=== PATIENT | female | born 1965 | race Caucasian/White ===

== ENCOUNTER 2020-02-22 10:18 | Outpatient (CLI) | payer OTHER ==
--- NOTE | 2020-02-22 10:49 | BD ---
EXAM: Bone densitometry using DEXA HISTORY: 54 yo female. Screening for postmenopausal osteoporosis FINDINGS: L1--bone mineral density 0.975 g/sq cm; T score -0.1 ; Z score 0.7 L2--bone mineral density 0.981 g/sq cm; T score -0.4 ; Z score 0.6 L3--bone mineral density 1.102 g/sq cm; T score 0.2 ; Z score 1.2 L4--bone mineral density 1.116 g/sq cm; T score 0.5 ; Z score 1.6 Total L1-L4--bone mineral density 1.052 g/sq cm; T score 0.0 ; Z score 1.1 Left femoral neck--bone mineral density0.866; T score 0.1 ; Z score 1.1 Total proximal left femur--bone mineral density 1.091; T score 1.2 ; Z score 1.9 IMPRESSION: Normal BMD
== END 2020-02-22 10:19 | disposition home or self-care (01) ==
LOC: BICMAMMO 10:18
PROVIDERS: ATTEND Family Medicine
DX: Z13.820 Encounter for screening for osteoporosis (principal); N95.9 Unspecified menopausal and perimenopausal disorder
CPT/HCPCS: 77080

== ENCOUNTER 2020-12-11 05:39 | Emergency (ER) | payer OTHER ==
[2020-12-11 06:34] LABS: #Lymphocytes 0.2 thou/uL (1.20-3.40); #Monocytes 0.3 thou/uL (0.11-0.59); #Neutrophils 5.5 thou/uL (1.40-6.50); %Basophils 0.1 % (0.0-1.0); %Eosinophils 0.3 % (0.0-10.0); %Monocytes 4.9 % (0.0-10.0); %Neutrophils 90.7 % (42.0-75.0); Hemoglobin 15.3 g/dL (12.0-16.0); Mean Corpuscular Hemoglobin 31.5 pg (27.0-31.0); Mean Corpuscular Volume 95.5 fL (78.0-98.0); Mean Platelet Volume 7.9 fL (7.4-10.4); Platelet Count 154 thou/uL (130-400); RBC Distribution Width 12.1 % (11.5-14.5); Red Blood Cell (RBC) Count 4.86 mill/uL (4.20-5.40); White Blood Cell (WBC) Count 6.1 thou/uL (4.8-10.8)
[2020-12-11 06:55] LABS: ALT (SGPT) 36 U/L (8-55); AST (SGOT) 38 U/L (5-34); Albumin 3.9 g/dL (3.5-5.0); Alkaline Phosphatase 66 U/L (40-110); Anion Gap 13 mmol/L (10-20); BUN (Urea Nitrogen) 14 mg/dL (9.8-20.1); Bilirubin, Total 0.3 mg/dL (0.2-1.2); Calc. Creatinine Clearance 0 mL/min (70-130); Calcium 8.5 mg/dL (7.8-10.44); Carbon Dioxide 17 mmol/L (22-29); Chloride 112 mmol/L (98-107); Globulin 2.6 g/dL (2.4-3.5); Glucose 120 mg/dL (70-105); Lipase 16 U/L (8-78); Potassium 3.8 mmol/L (3.5-5.1); Protein, Total 6.5 g/dL (6.0-8.3); Sodium 138 mmol/L (136-145)
[2020-12-11] MEDS ORDERED: Ondansetron PF 4 MG/2 ML Vial ONE (06:56)
[2020-12-11] MEDS ORDERED: Ketorolac Tromethamine 30 MG/ML VIAL ONE (06:56)
[2020-12-11] MEDS ORDERED: diphenhydrAMINE 50 MG/ML VIAL ONE (06:56)
[2020-12-11] MEDS ORDERED: Meclizine HCl 25 MG TAB ONE (06:56)
[2020-12-11] MEDS ORDERED: Metoclopramide HCl 10 MG/2 ML VIAL ONE (06:56)
[2020-12-11 07:42] LABS: Bacteria/HPF None Seen HPF (None Seen); Bilirubin Negative (Negative); Blood, Urine 2+ (Negative); Calcium Oxalate Crystals 3+ HPF (None Seen); Clarity Clear (Clear); Glucose, Urine (Dipstick) Normal (Negative); Ketone, Urine 20 mg/dL (Negative); Leukocyte 75 Leu/uL (Negative); Nitrite Negative (Negative); Protein, Urine (Dipstick) 50 mg/dL (Neg-Trace); RBC/HPF 21-50 HPF (0-3); Specific Gravity, Urine 1.028 (1.002-1.036); Urobilinogen Normal mg/dL (Less than 2); WBC/HPF 0-3 HPF (0-3); pH, Urine 5.5 (5.0-9.0)
[2020-12-11] MEDS ORDERED: Dexamethasone 4 MG TAB ONE ×2 (08:03)
== END 2020-12-11 09:56 | disposition home or self-care (01) ==
LOC: ERS 05:39
DX: R42 Dizziness and giddiness (principal); Z87.891 Personal history of nicotine dependence
CPT/HCPCS: 36415; 70450; 80053; 81003; 81015; 83690; 84484; 85025; 93005; 96365; 96375; J1200; J1885; J2405; J2765; J8540

== ENCOUNTER 2021-06-22 06:59 | Emergency (ER) | payer OTHER ==
[2021-06-22 08:02] LABS: #Eosinphils 0.2 thou/uL (0.0-0.7); #Lymphocytes 0.6 thou/uL (1.20-3.40); #Monocytes 0.3 thou/uL (0.11-0.59); %Basophils 0.4 % (0.0-1.0); %Eosinophils 3.8 % (0.0-10.0); %Monocytes 5.4 % (0.0-10.0); %Neutrophils 80.3 % (42.0-75.0); Hemoglobin 17.3 g/dL (12.0-16.0); Mean Corpuscular HGB CONC 36.1 g/dL (32.0-36.0); Mean Corpuscular Hemoglobin 34.4 pg (27.0-31.0); Mean Corpuscular Volume 95.4 fL (78.0-98.0); Mean Platelet Volume 7.9 fL (7.4-10.4); Platelet Count 162 thou/uL (130-400); RBC Distribution Width 11.8 % (11.5-14.5); Red Blood Cell (RBC) Count 5.03 mill/uL (4.20-5.40); White Blood Cell (WBC) Count 6.2 thou/uL (4.8-10.8)
[2021-06-22 08:22] LABS: ALT (SGPT) 19 U/L (8-55); AST (SGOT) 21 U/L (5-34); Albumin 4.4 g/dL (3.5-5.0); Alkaline Phosphatase 76 U/L (40-110); Anion Gap 12 mmol/L (10-20); BUN (Urea Nitrogen) 8 mg/dL (9.8-20.1); Bilirubin, Total 0.7 mg/dL (0.2-1.2); Calc. Creatinine Clearance 0 mL/min (70-130); Calcium 9.6 mg/dL (7.8-10.44); Carbon Dioxide 25 mmol/L (22-29); Chloride 105 mmol/L (98-107); Globulin 2.6 g/dL (2.4-3.5); Glucose 100 mg/dL (70-105); Potassium 3.8 mmol/L (3.5-5.1); Sodium 138 mmol/L (136-145)
== END 2021-06-22 10:27 | disposition home or self-care (01) ==
LOC: ERS 06:59
DX: R09.1 Pleurisy (principal); J32.9 Chronic sinusitis, unspecified
CPT/HCPCS: 71045; 71275; 80053; 83880; 84484; 85025; 85379; 93005

== ENCOUNTER 2021-10-09 08:43 | Outpatient (CLI) | payer OTHER | END 2021-10-09 08:44 | disposition home or self-care (01) | LOC: CT 08:43 | PROVIDERS: ATTEND Registered Nurse Emergency | DX: R10.32 Left lower quadrant pain (principal); N20.0 Calculus of kidney; K57.90 Diverticulosis of intestine, part unspecified, without perforation or abscess without bleeding | CPT/HCPCS: 74177 ==

== ENCOUNTER 2021-11-29 09:48 | Outpatient (CLI) | payer OTHER ==
[2021-11-29 11:21] LABS: Hemoglobin 15.2 g/dL (12.0-15.5); Mean Corpuscular HGB CONC 34.2 g/dL (32.0-36.0); Mean Corpuscular Hemoglobin 31.5 pg (27.0-33.0); Mean Corpuscular Volume 92.1 fl (81.6-98.3); Mean Platelet Volume 10.6 fl (7.4-10.4); Platelet Count 187 10x3/uL (150-450); RBC Distribution Width 12.9 % (11.5-14.5); Red Blood Cell (RBC) Count 4.83 10x6/uL (3.90-5.03)
[2021-11-29 11:41] LABS: PTT 26.5 sec (22.0-33.0); Prothrombin Time 10.7 sec (9.5-12.1)
[2021-11-29 13:29] LABS: Anion Gap 13 mmol/L (10-20); BUN (Urea Nitrogen) 17 mg/dL (9.8-20.1); Calc. Creatinine Clearance 0 mL/min (70-130); Calcium 9.5 mg/dL (7.8-10.44); Carbon Dioxide 24 mmol/L (22-29); Chloride 106 mmol/L (98-107); Glucose 133 mg/dL (70-105); Potassium 4.3 mmol/L (3.5-5.1); Sodium 139 mmol/L (136-145)
[2021-11-29 21:42] LABS: SARS-CoV-2 PCR by NAA Not Detected (NotDetected)
== END 2021-11-29 09:49 | disposition home or self-care (01) ==
LOC: LABBT 09:48
PROVIDERS: ATTEND Urology
DX: Z01.818 Encounter for other preprocedural examination (principal); N20.0 Calculus of kidney; M32.9 Systemic lupus erythematosus, unspecified; N28.1 Cyst of kidney, acquired; M54.12 Radiculopathy, cervical region; M54.16 Radiculopathy, lumbar region; M79.7 Fibromyalgia; R31.29 Other microscopic hematuria; E55.9 Vitamin D deficiency, unspecified; F17.200 Nicotine dependence, unspecified, uncomplicated; E66.9 Obesity, unspecified; Z20.822 Contact with and (suspected) exposure to COVID-19
CPT/HCPCS: 80048; 85027; 85610; 85730; 93005; 93010; U0003; U0005

== ENCOUNTER 2021-12-04 07:06 | Day surgery (SDC) | payer OTHER ==
[2021-11-30 14:24] VITALS: BMI 37.8
[2021-12-04] MEDS ORDERED: Levofloxacin 500 mg/D5W 100 ml Premix Bag ONE ×2 (08:19→10:11)
[2021-12-04] MEDS ORDERED: Fentanyl 100 MCG/2 ML VIAL ONE (10:05)
[2021-12-04] MEDS ORDERED: Midazolam HCl 2 mg/2 ml Vial ONE (10:12)
[2021-12-04] MEDS ORDERED: Glycopyrrolate 0.2 MG/ML 5 ML SYRINGE ONE (10:30)
[2021-12-04] MEDS ORDERED: Ondansetron PF 4 MG/2 ML Vial ONE (10:30)
[2021-12-04] MEDS ORDERED: PROPOFOL 200 MG/20 ML VIAL ONE (10:30)
[2021-12-04] MEDS ORDERED: Dexamethasone 20 MG/5 ML VIAL ONE (10:30)
[2021-12-04] MEDS ORDERED: Rocuronium Bromide 10 MG/ML (10ML VIAL) ONE (10:30)
[2021-12-04] MEDS ORDERED: Lidocaine 1% PF 5 ML VIAL ONE (10:30)
[2021-12-04] MEDS ORDERED: Phenazopyridine HCl 100 MG TAB ONE ×2 (12:14)
[2021-12-04] MEDS ORDERED: Oxybutynin 5 MG TAB ONE (12:15)
[2021-12-04] MEDS ORDERED: Promethazine HCl 25 MG/ML VIAL ONE (12:23)
== END 2021-12-04 13:35 | disposition home or self-care (01) ==
LOC: SDC 07:06
PROVIDERS: ATTEND Urology
PROC: 0TC48ZZ Extirpation of Matter from Left Kidney Pelvis, Via Natural or Artificial Opening Endoscopic (ICD-10-PCS; principal; 2021-12-04)
PROC: 0T778DZ Dilation of Left Ureter with Intraluminal Device, Via Natural or Artificial Opening Endoscopic (ICD-10-PCS; principal; 2021-12-04)
DX: N20.0 Calculus of kidney (principal); G35 Multiple sclerosis; N39.46 Mixed incontinence; N81.11 Cystocele, midline; N81.6 Rectocele; M19.90 Unspecified osteoarthritis, unspecified site; J45.909 Unspecified asthma, uncomplicated; E11.9 Type 2 diabetes mellitus without complications; M32.9 Systemic lupus erythematosus, unspecified; M54.16 Radiculopathy, lumbar region; M79.7 Fibromyalgia; M54.12 Radiculopathy, cervical region; E55.9 Vitamin D deficiency, unspecified; F17.200 Nicotine dependence, unspecified, uncomplicated; E66.9 Obesity, unspecified; Z68.37 Body mass index [BMI] 37.0-37.9, adult; Z79.899 Other long term (current) drug therapy; Z88.0 Allergy status to penicillin
CPT/HCPCS: 71045; 74018; 74420; 82365; 88300; C2617; J1100; J1956; J2250; J2405; J2550; J2704; J3010

== ENCOUNTER 2021-12-13 16:20 | Outpatient (CLI) | payer OTHER | END 2021-12-13 16:21 | disposition home or self-care (01) | LOC: BICRAD 16:20 | PROVIDERS: ATTEND Urology | DX: N20.0 Calculus of kidney (principal); Z96.0 Presence of urogenital implants | CPT/HCPCS: 74018 ==

== ENCOUNTER 2022-01-03 08:01 | Outpatient (CLI) | payer OTHER | END 2022-01-03 08:02 | disposition home or self-care (01) | LOC: BICMAMMO 08:01 | PROVIDERS: ATTEND Family Medicine | DX: Z12.31 Encounter for screening mammogram for malignant neoplasm of breast (principal); Z80.3 Family history of malignant neoplasm of breast | CPT/HCPCS: 77063; 77067 ==

== ENCOUNTER 2022-02-20 12:25 | Outpatient (CLI) | payer OTHER | END 2022-02-20 12:26 | disposition home or self-care (01) | LOC: BICCT 12:25 | PROVIDERS: ATTEND Otolaryngology Plastic Surgery within the Head & Neck | DX: J32.9 Chronic sinusitis, unspecified (principal); J34.2 Deviated nasal septum; J34.89 Other specified disorders of nose and nasal sinuses ==

== ENCOUNTER 2022-03-01 13:56 | Outpatient (CLI) | payer OTHER | END 2022-03-01 13:57 | disposition home or self-care (01) | LOC: BICULT 13:56 | PROVIDERS: ATTEND Urology | DX: N20.0 Calculus of kidney (principal); N28.1 Cyst of kidney, acquired | CPT/HCPCS: 74018; 76770 ==

== ENCOUNTER 2022-04-13 15:57 | Outpatient (CLI) | payer OTHER | END 2022-04-13 15:58 | disposition home or self-care (01) | LOC: LABBT 15:57 | PROVIDERS: ATTEND Otolaryngology Plastic Surgery within the Head & Neck | DX: Z01.818 Encounter for other preprocedural examination (principal) | CPT/HCPCS: 85014; 87811; 93005; 93010 ==

== ENCOUNTER 2022-04-18 08:36 | Day surgery (SDC) | payer OTHER ==
[2022-04-16 15:49] VITALS: BMI 37.3
[2022-04-18] MEDS ORDERED: Oxymetazoline HCl 0.05% (30 ML BOT) ONE ×2 (09:53→10:49)
[2022-04-18] MEDS ORDERED: Lidocaine 1% MPF 2 ML VIAL ONE (09:53)
[2022-04-18] MEDS ORDERED: Lidocaine 1% (PF) 30 ML VIAL ONE (10:49)
[2022-04-18] MEDS ORDERED: Bacitracin Zinc Ointment 30 gm TUBE ONE (10:49)
[2022-04-18] MEDS ORDERED: EPINEPHrine 1 MG/ML AMP ONE (10:49)
[2022-04-18] MEDS ORDERED: fentaNYL Citrate/PF 100 MCG/2 ML SYRINGE ONE (10:56)
[2022-04-18] MEDS ORDERED: PROPOFOL 200 MG/20 ML VIAL ONE (11:07)
[2022-04-18] MEDS ORDERED: Dexamethasone 20 MG/5 ML VIAL ONE (11:07)
[2022-04-18] MEDS ORDERED: Labetalol HCl 100 MG/20 ML VIAL ONE (11:07)
[2022-04-18] MEDS ORDERED: Rocuronium Bromide 10 MG/ML (10ML VIAL) ONE (11:07)
[2022-04-18] MEDS ORDERED: Ondansetron PF 4 MG/2 ML Vial ONE (11:07)
[2022-04-18] MEDS ORDERED: hydrALAZINE 20 MG/ML VIAL ONE (11:54)
[2022-04-18] MEDS ORDERED: Fentanyl 100 MCG/2 ML VIAL ONE (11:59)
[2022-04-18] MEDS ORDERED: Promethazine HCl 25 MG/ML VIAL ONE (12:46)
[2022-04-18] MEDS ORDERED: Hydrocodone-Acetamin 15 ML UDCUP ONE (14:20)
== END 2022-04-18 14:59 | disposition home or self-care (01) ==
LOC: SDC 08:36
PROVIDERS: ATTEND Otolaryngology Plastic Surgery within the Head & Neck
PROC: 099X8ZZ Drainage of Left Sphenoid Sinus, Via Natural or Artificial Opening Endoscopic (ICD-10-PCS; principal; 2022-04-18)
PROC: 099W8ZZ Drainage of Right Sphenoid Sinus, Via Natural or Artificial Opening Endoscopic (ICD-10-PCS; principal; 2022-04-18)
PROC: 09SM0ZZ Reposition Nasal Septum, Open Approach (ICD-10-PCS; principal; 2022-04-18)
PROC: 099S8ZZ Drainage of Right Frontal Sinus, Via Natural or Artificial Opening Endoscopic (ICD-10-PCS; principal; 2022-04-18)
PROC: 099T8ZZ Drainage of Left Frontal Sinus, Via Natural or Artificial Opening Endoscopic (ICD-10-PCS; principal; 2022-04-18)
PROC: 099Q8ZZ Drainage of Right Maxillary Sinus, Via Natural or Artificial Opening Endoscopic (ICD-10-PCS; principal; 2022-04-18)
PROC: 09TV8ZZ Resection of Left Ethmoid Sinus, Via Natural or Artificial Opening Endoscopic (ICD-10-PCS; principal; 2022-04-18)
PROC: 09TU8ZZ Resection of Right Ethmoid Sinus, Via Natural or Artificial Opening Endoscopic (ICD-10-PCS; principal; 2022-04-18)
PROC: 8E09XBZ Computer Assisted Procedure of Head and Neck Region (ICD-10-PCS; principal; 2022-04-18)
PROC: 099R8ZZ Drainage of Left Maxillary Sinus, Via Natural or Artificial Opening Endoscopic (ICD-10-PCS; principal; 2022-04-18)
PROC: 095L0ZZ Destruction of Nasal Turbinate, Open Approach (ICD-10-PCS; principal; 2022-04-18)
DX: J32.9 Chronic sinusitis, unspecified (principal); J34.2 Deviated nasal septum; J34.3 Hypertrophy of nasal turbinates; J34.89 Other specified disorders of nose and nasal sinuses; M19.90 Unspecified osteoarthritis, unspecified site; J45.909 Unspecified asthma, uncomplicated; E11.9 Type 2 diabetes mellitus without complications; M32.9 Systemic lupus erythematosus, unspecified; Z79.899 Other long term (current) drug therapy; Z88.0 Allergy status to penicillin; Z98.84 Bariatric surgery status
CPT/HCPCS: J0171; J0360; J1100; J2001; J2405; J2550; J2704; J3010

== ENCOUNTER 2022-08-17 16:28 | Emergency (ER) | payer OTHER ==
[2022-08-17 17:11] LABS: #Eosinphils 0.2 thou/uL (0.0-0.7); #Lymphocytes 1.9 thou/uL (1.20-3.40); #Monocytes 0.3 thou/uL (0.11-0.59); #Neutrophils 2.8 thou/uL (1.40-6.50); %Basophils 0.5 % (0.0-1.0); %Eosinophils 3.5 % (0.0-10.0); %Lymphocytes 36.3 % (21.0-51.0); %Monocytes 6.3 % (0.0-10.0); %Neutrophils 53.4 % (42.0-75.0); Hemoglobin 14.2 g/dL (12.0-16.0); Mean Corpuscular HGB CONC 34.4 g/dL (32.0-36.0); Mean Corpuscular Hemoglobin 32.5 pg (27.0-31.0); Mean Corpuscular Volume 94.5 fl (78.0-98.0); Mean Platelet Volume 8.4 fL (7.4-10.4); Platelet Count 190 10x3/uL (130-400); RBC Distribution Width 11.9 % (11.5-14.5); Red Blood Cell (RBC) Count 4.37 mill/uL (4.20-5.40); White Blood Cell (WBC) Count 5.2 10x3/uL (4.8-10.8)
[2022-08-17 17:32] LABS: ALT (SGPT) 12 U/L (8-55); AST (SGOT) 23 U/L (5-34); Albumin 4.1 g/dL (3.5-5.0); Alkaline Phosphatase 76 U/L (40-110); Anion Gap 11 mmol/L (10-20); BUN (Urea Nitrogen) 19 mg/dL (9.8-20.1); Bilirubin, Total 0.2 mg/dL (0.2-1.2); Calc. Creatinine Clearance 0 mL/min (70-130); Calcium 9.4 mg/dL (7.8-10.44); Carbon Dioxide 26 mmol/L (22-29); Chloride 106 mmol/L (98-107); Estimated GFR 68; Globulin 2.5 g/dL (2.4-3.5); Glucose 126 mg/dL (70-105); Lipase 24 U/L (8-78); Protein, Total 6.6 g/dL (6.0-8.3); Sodium 139 mmol/L (136-145)
[2022-08-17] MEDS ORDERED: Acetaminophen 500 MG TAB ONE (17:50)
[2022-08-17] MEDS ORDERED: Aspirin 325 MG TAB ONE (17:50)
[2022-08-17] MEDS ORDERED: Aspirin Chewable 81 MG TAB ONE (17:52)
== END 2022-08-17 18:05 | disposition home or self-care (01) ==
LOC: ERS 16:28
DX: R07.9 Chest pain, unspecified (principal); Z87.891 Personal history of nicotine dependence
CPT/HCPCS: 71045; 80053; 83690; 84484; 85025; 93005; 94760

== ENCOUNTER 2023-04-18 07:56 | Outpatient (CLI) | payer OTHER | END 2023-04-18 07:57 | disposition home or self-care (01) | LOC: SCSMRI 07:56 | PROVIDERS: ATTEND Psychiatry & Neurology Neurology | DX: G37.9 Demyelinating disease of central nervous system, unspecified (principal); R90.82 White matter disease, unspecified; M47.812 Spondylosis without myelopathy or radiculopathy, cervical region | CPT/HCPCS: 70553; 72156 ==

== ENCOUNTER 2023-07-24 13:46 | Outpatient (CLI) | payer OTHER | END 2023-07-24 13:47 | disposition home or self-care (01) | LOC: SCSMRI 13:46 | PROVIDERS: ATTEND Psychiatry & Neurology Neurology | DX: M48.061 Spinal stenosis, lumbar region without neurogenic claudication (principal) | CPT/HCPCS: 72158; 82565 ==